=== PATIENT | male | born 1965 | race Caucasian/White ===

== ENCOUNTER 2020-08-10 08:05 | Day surgery (SDC) | payer OTHER, SELFPAY ==
[2020-08-07 11:33] VITALS: BMI 31.2
--- NOTE | 2020-08-09 09:05 | P.CONAN_ITS ---
Documented by User: Cydney Ortega 08/09/20 09:08 HPI - Anesthesia Eval Consult details Narrative: 54yo M for Colonoscopy [facility] Past Medical History Medical History (Updated 08/10/20 @ 09:31 by Maegan Brnach) Blind right eye Colitis HTN (hypertension) Hx of cytomegalovirus retinitis Migraines Surgical History Surgical History (Updated 08/10/20 @ 09:31 by Maegan Branch) H/O living-donor kidney transplantation Hx of cataract extraction Hx of colonoscopy Hx of hernia repair Hx of kidney transplant Social History Social History Patient Tobacco Use Status: Never used Tobacco Use of substances other than those prescribed or required for medical reasons: No Are you DNR?: No Advance Directives: No Advance Directives Information Provided: Yes Meds Allergies Allergy/AdvReac Type Severity Reaction Status Date / Time egg [Egg] Allergy Intermediate DIAPHORESIS/GI Verified 08/10/20 09:09 UPSET droperidol [From Inapsine] AdvReac Intermediate AGITATION Verified 08/10/20 09:09 Milk Containing Products AdvReac Intermediate GI UPSET Verified 08/10/20 09:09 [Milk Products] PAPER TAPE Allergy Unknown BLISTER Uncoded 11/17/19 17:55 Home Medications Medication Instructions Recorded Confirmed Last Taken Type cetirizine [Zyrtec] 10 mg PO DAILY PRN 08/07/20 08/07/20 Unknown History letermovir [Prevymis] 1 tab PO DAILY 08/07/20 08/07/20 Unknown History sumatriptan succinate 1 tab PO NEEDED 08/07/20 08/07/20 Unknown History Exam Exam Date and Time: August 09, 2020 0905 Height,Weight and Vital Signs: Height 5 ft 11 in Weight 101.605 kg Assessment and Plan Assessment Anesthesia Assessment: Chart Reviewed Documented by User: Maegan Branch 08/10/20 09:33 [facility] Past Medical History Medical History (Updated 08/10/20 @ 09:31 by Maegan Branch) Blind right eye Colitis HTN (hypertension) Hx of cytomegalovirus retinitis Migraines Family History Family history of problems with anesthesia: No Surgical History Surgical History (Updated 08/10/20 @ 09:31 by Maegan Branch) H/O living-donor kidney transplantation Hx of cataract extraction Hx of colonoscopy Hx of hernia repair Hx of kidney transplant History of Problems with Anesthesia: No Social History Social History Patient Tobacco Use Status: Never used Tobacco Use of substances other than those prescribed or required for medical reasons: No Are you DNR?: No Advance Directives: No Advance Directives Information Provided: Yes Meds Allergies Allergy/AdvReac Type Severity Reaction Status Date / Time egg [Egg] Allergy Intermediate DIAPHORESIS/GI Verified 08/10/20 09:09 UPSET droperidol [From Inapsine] AdvReac Intermediate AGITATION Verified 08/10/20 09:09 Milk Containing Products AdvReac Intermediate GI UPSET Verified 08/10/20 09:09 [Milk Products] PAPER TAPE Allergy Unknown BLISTER Uncoded 11/17/19 17:55 Home Medications Medication Instructions Recorded Confirmed Last Taken Type cetirizine [Zyrtec] 10 mg PO DAILY PRN 08/07/20 08/07/20 Unknown History letermovir [Prevymis] 1 tab PO DAILY 08/07/20 08/07/20 Unknown History sumatriptan succinate 1 tab PO NEEDED 08/07/20 08/07/20 Unknown History Exam Height,Weight and Vital Signs: Vital Signs Temp Pulse Resp BP Pulse Ox 08/10/20 08:38 98.7 F 82 16 112/79 95 Airway Mallampati Class: II TM Dist: >3cm Neck ROM: Full Heart: RRR Lungs: CTAB Assessment and Plan Assessment Anesthesia Assessment: Anesthesia Plan Discussed and Chart Reviewed Final Anesthetic Review NPO: Yes ASA Class: III Final Preanesthetic Review: No Changes in Pt Med Stat, Meds/Allgs Chart Reviewed, Consent Obtained/Reviewed and Anes Risks/Benef Reviewed Patient Risk: Intermediate Procedure Risk: Low Assessment/Block/Sedation in SS: Assess/Block/Sedation-SS Anesthetic Plan Anesthetic Plan: MAC: Disposition: Standard PACU
[2020-08-10 08:38] VITALS: BP 112/79; PULSE 82; RESP 16; TEMP 37.1; O2SAT 95; BMI 30.7
--- NOTE | 2020-08-10 09:06 | PC.NURSE ---
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 OR nurse notified.
[2020-08-10] MEDS: 0.9 % Sodium Chloride 1,000 ML 100 ML IVCONT (09:09)
--- NOTE | 2020-08-10 09:32 | MHC.SHP ---
Pre-Procedural Eval Section B Chief Complaint: screening Details of Present Illness: see H&P nop cnanges Relevant Family History (Specify if Yes): No Relevant Social History: None Present Medications: None Medical History: Significant History (see h&p) History of Previous Operations: No relevant previous surgery Allergies: Allergies Allergy/AdvReac Type Severity Reaction Status Date / Time egg [Egg] Allergy Intermediate DIAPHORESIS/GI Verified 08/10/20 09:09 UPSET droperidol [From Inapsine] AdvReac Intermediate AGITATION Verified 08/10/20 09:09 Milk Containing Products AdvReac Intermediate GI UPSET Verified 08/10/20 09:09 [Milk Products] PAPER TAPE Allergy Unknown BLISTER Uncoded 11/17/19 17:55 Review of Systems Sugical H&P ROS: Negative: Constitution, Cardiovascular, Respiratory, Neurological, Psychiatric, Hem-Onc, Allergic/Immunologic, Gastrointestinal, Genitourinary, Musculoskeletal, Integumentary, Endocrine and Eyes/Ears/Nose/Throat Exam Surgical H&P Exam: Normal: HEENT, Normal: Heart, Normal: Lungs, Normal: Extremities, Normal: Abdomen, Normal: Skin and Normal: Neurological Plan Diagnosis/Plan: Unchanged I have reviewed the history and physical and performed a pertinent physical examination on my patient. No changes have occurred unless specified.
--- NOTE | 2020-08-10 09:52 | P.BOP_ITS ---
Brief Operative Note Date of Service: 08/10/20 Pre-op diagnosis: [id number] Post-op diagnosis: same Surgeon: Sadiq Acharya Anesthesia: MAC Was an Paving Machine Operator used for this Procedure?: No Estimated blood loss (mL): 5 Pathology: other (biopsies) Condition: stable Disposition: PACU
[2020-08-10 09:57] VITALS: BP 93/55; PULSE 80; RESP 16; TEMP 36.3; O2SAT 98
[2020-08-10] MEDS: ondansetron HCL 4 MG/2 ML VIAL IVPUSH (10:13)
[2020-08-10 10:15] VITALS: BP 95/66; PULSE 71; RESP 16; O2SAT 95
[2020-08-10 10:40] VITALS: BP 101/68; PULSE 71; RESP 18; O2SAT 99
--- NOTE | 2020-08-10 12:14 | OP_ITS ---
SURGEON: Sadiq Acharya MD INDICATIONS: Colon cancer screening. PREOPERATIVE DIAGNOSIS: POSTOPERATIVE DIAGNOSIS: PROCEDURE PERFORMED: Colonoscopy to the terminal ileum with biopsy. ESTIMATED BLOOD LOSS: COMPLICATIONS: ANESTHESIA: ASSISTANTS: SPECIMENS: MEDICATIONS: Monitored anesthesia care. DESCRIPTION OF PROCEDURE: The history and physical performed. The risks and benefits of the procedure were explained to the patient. Informed consent was obtained. The patient was placed in the left lateral decubitus position. A digital rectal exam was performed and was found to be normal. The Olympus pediatric video colonoscope was introduced into the rectum and advanced to the cecum without difficulty. The cecum was identified by transillumination, palpation, and identification of ileocecal valve. Examination was performed and the scope was removed. He tolerated the procedure well and was returned to the recovery area in stable condition. FINDINGS: The terminal ileum was normal. The visualized colonic mucosa was normal. The quality of the prep was good. There was no evidence of colitis endoscopically. Random biopsies were obtained from the terminal ileum, right colon, and sigmoid. Retroflexed examination was normal. IMPRESSION: Normal colonoscopy. RECOMMENDATIONS: 1. Follow up the biopsy results. 2. Repeat colonoscopy is recommended in 10 years for average risk individuals. MD RICHARD San/JEAN PAUL / [id number]
== END 2020-08-10 11:01 | disposition home or self-care (01) ==
PROVIDERS: PCP Internal Medicine; Visit Provider Internal Medicine Gastroenterology
PROC: 0DJD8ZZ Inspection of Lower Intestinal Tract, Via Natural or Artificial Opening Endoscopic (ICD-10-PCS; CPT 45378; principal; 2020-08-10 09:20)
DX: Z12.11 Encounter for screening for malignant neoplasm of colon (principal); I10 Essential (primary) hypertension; K52.89 Other specified noninfective gastroenteritis and colitis; H54.61 Unqualified visual loss, right eye, normal vision left eye; B25.8 Other cytomegaloviral diseases; Z79.899 Other long term (current) drug therapy
CPT/HCPCS: 45380; 88305; J2405; J3010

== ENCOUNTER 2020-08-30 13:07 | Outpatient (REF) | payer OTHER, SELFPAY ==
[2020-08-30 15:02] LABS: Leukocytes Stool Qualitative NEGATIVE (NEGATIVE)
== END 2020-08-30 13:08 | disposition home or self-care (01) ==
LOC: HO.LNP 13:07
PROVIDERS: Visit Provider Internal Medicine Gastroenterology
DX: R19.7 Diarrhea, unspecified (principal)
CPT/HCPCS: 87045; 87046; 87177; 87209; 87329; 89055

== ENCOUNTER 2021-02-11 12:21 | Outpatient (REF) | payer OTHER, SELFPAY ==
[2021-02-11 14:49] LABS: TSH reflex Free T4 0.94 uIU/mL (0.32-4.0)
[2021-02-13 13:42] LABS: Immunoglobulin A 131 mg/dL (47-310)
[2021-02-14 07:57] LABS: Transglutaminase IgA <1.0 U/mL
== END 2021-02-11 12:22 | disposition home or self-care (01) ==
LOC: HO.10HDL 12:21
PROVIDERS: Visit Provider Internal Medicine Gastroenterology
DX: R19.7 Diarrhea, unspecified (principal)
CPT/HCPCS: 36415; 82784; 83516; 84443

== ENCOUNTER 2021-02-18 15:55 | Outpatient (REF) | payer OTHER, SELFPAY | END 2021-02-18 15:56 | disposition home or self-care (01) | LOC: HO.10HDLNP 15:55 | PROVIDERS: Visit Provider Internal Medicine Gastroenterology | DX: R19.7 Diarrhea, unspecified (principal) | CPT/HCPCS: 87177; 87209 ==

== ENCOUNTER 2021-02-19 12:55 | Outpatient (REF) | payer OTHER, SELFPAY | END 2021-02-19 12:56 | disposition home or self-care (01) | LOC: HO.10HDLNP 12:55 | PROVIDERS: Visit Provider Internal Medicine Gastroenterology | DX: R19.7 Diarrhea, unspecified (principal) | CPT/HCPCS: 87177; 87209 ==